=== PATIENT | male | born 1955 | race Caucasian/White ===

== ENCOUNTER 2021-08-01 08:53 | Outpatient (REF) | payer OTHER, SELFPAY | END 2021-08-01 08:54 | disposition home or self-care (01) | LOC: HO.HMGCLDS 08:53 | PROVIDERS: Visit Provider Internal Medicine | DX: Z20.822 Contact with and (suspected) exposure to COVID-19 (principal) | CPT/HCPCS: C9803; U0003; U0005 ==

== ENCOUNTER 2024-09-11 08:41 | Outpatient (AMB) | payer MEDICARE, OTHER, SELFPAY ==
--- NOTE | 2024-09-11 09:51 | AM.OFFWIN_ITS ---
Intake Vital Signs 09/11/24 10:01 Weight 177 lb BP 106/64 Blood Pressure Location Rt brachial Position Sitting Pulse 66 Pulse Source Pulse Oximeter Pulse Oximetry (%) 98 Oxygen Delivery Method Room Air Intake Visit Reasons: EP Rash Intake Note: Patient here for rash all over body that started about 1 month ago. Patient Tobacco Use Status: Never used Tobacco Allergies No Known Allergies Allergy (Verified 09/11/24 10:01) Do you need a note to return to daycare/school/sports/work: No HPI HPI Comments History of Present Illness Details 69 y/o male patient who presents to the walk in clinic for c/o rash with hives all over his body. Reports Hives that come and go for the past month. Reports rash being very itchy. He did take Benadrly which resolved the hives temporally. He likes to go to the [facility] for [facility], and usually gets [place] [place]. He was in [place] hunting for 2 months with friends. Denies fevers or chills. PFSH Social History Patient Tobacco Use Status: Never used Tobacco Physical Exam Vital Signs: Last Vital Signs Pulse 66 09/11/24 10:01 BP 106/64 09/11/24 10:01 Pulse Ox 98 09/11/24 10:01 Oxygen Delivery Method Room Air 09/11/24 10:01 Const General: cooperative, comfortable and no acute distress Orientation/consciousness: patient oriented x3 Skin Other: Some Hives on torso, upper and lower extremities. Skin very dry and flaky. Neuro General: patient oriented x3, gait normal and moves all extremities Psych Speech and movement: Normal speech and movement present Assessment & Plan Assessment & Plan (1) Full body hives: Code(s): L50.9 - Urticaria, unspecified Plan: Ordered Zyrtec for 30 days. May take Benadrly at night time. Avoid the powers or wear long sleeve clothings. Advised to remove the clothing immediately after leaving the powers, and take a shower. Wash all clothings in separately with warm water. Moisturize skin with Eucecrine cream or other moisturizer. F/U with PCP for possible referral to [facility]. Medications: New cetirizine (Zyrtec) 10 mg PO DAILY 90 tabs 0RF L50.9 - Urticaria, unspecified Coding Level of Care Code Est Pt Level 4 (39633) Diagnoses Full body hives L50.9 Time Spent (min) 20
[2024-09-11 10:01] VITALS: BP 106/64; PULSE 66; O2SAT 98
== END 2024-09-11 10:36 | disposition home or self-care (01) ==
PROVIDERS: Visit Provider Nurse Practitioner Family
DX: L50.9 Urticaria, unspecified (principal)

== ENCOUNTER → 2024-09-11 08:41 | Outpatient (BNVA) | payer MEDICARE, OTHER, SELFPAY | PROVIDERS: Visit Provider Nurse Practitioner Family | DX: L50.9 Urticaria, unspecified (principal) | CPT/HCPCS: 99212 ==

== ENCOUNTER 2024-10-27 16:28 | Outpatient (REF) | payer MEDICARE, OTHER, SELFPAY ==
[2024-10-28 13:47] LABS: Influenza A PCR NEGATIVE (Negative); Influenza B PCR NEGATIVE (Negative); Resp Syncy Virus RNA Qual PCR NEGATIVE (Negative); SARS COV2 PCR INHOUSE NEGATIVE (Negative)
== END 2024-10-27 16:29 | disposition home or self-care (01) ==
LOC: HO.LAB 16:28
PROVIDERS: Physician Assistant
DX: B34.9 Viral infection, unspecified (principal); R09.89 Other specified symptoms and signs involving the circulatory and respiratory systems; R05.8 Other specified cough
CPT/HCPCS: 0241U; 99202

== ENCOUNTER 2024-10-27 16:28 | Outpatient (AMB) | payer MEDICARE, OTHER, SELFPAY ==
--- NOTE | 2024-10-27 16:31 | AM.OFFWIN_ITS ---
Intake Vital Signs 10/27/24 16:32 Weight 166 lb BP 120/76 Blood Pressure Location Rt brachial Position Sitting Pulse 96 Pulse Source Pulse Oximeter Temp 98.0 F Temp Source Oral Pulse Oximetry (%) 96 Oxygen Delivery Method Room Air Intake Visit Reasons: EP SOB, headache, diarrhea Intake Note: Patient here for SOB, diarrhea, headaches that has been present for a couple of weeks. Patient Tobacco Use Status: Never used Tobacco Allergies No Known Allergies Allergy (Verified 10/27/24 16:33) Do you need a note to return to daycare/school/sports/work: No HPI HPI Comments History of Present Illness Details History - The patient is a 69-year-old male pres enting with worsening cough and breathlessness. - Reports a persistent cough worsening [place] two weeks with wheezing. - No past history of COPD or asthma and typically does not use inhalers. - Accompanied by chills, joint pain, and general malaise resembling a flu-like syndrome. - Recent interactions with family member s exhibiting similar symptoms suggest possible infectious exposure. - Experiences dehydration due to signifi cantly reduced fluid intake and appetite - Diarrhea present without nausea, vomit ing, or visible blood or black stools. - Symptom management attempted with Tyle nol, however, symptoms persist without significant improvement. Physical Exam General: Cooperative, healthy appearing, comfortable and no acute distress Orientation/consciousness: Patient oriented x3 Limitations: No limitations Head: Normal to inspection Ears: Hearing grossly normal bilaterally, external ears normal and TM's normal bilaterally Nose: Normal external nose present, Normal nares present and No nasal discharge present Face and sinus: Normal facial exam and Yes sinuses nontender Mouth: Normal oral and palatal mucosa present and moist mucous membranes Throat: Yes tonsils normal, Yes uvula midline. Posterior oropharynx erythema Eyes: Appearance normal, both eyes and all related structures Neck: Normal visual inspection Respiratory: Insp/exp wheeze R>L, slight vesicular sounds R side. Normal respiratory effort, able to speak in complete sentences, Actively coughing, no respiratory distress, not tachypneic, no tripod positioning and no use of accessory muscles. Cardiovascular: Regular rate and rhythm. Normal S1 and S2. Heart rate elevated at 105 Skin: No rashes or lesions noted Neuro: Patient oriented x3 Extremities: Normal to inspection and Yes no clubbing, cyanosis or edema PFSH Social History Patient Tobacco Use Status: Never used Tobacco Review of Systems Const All systems reviewed & are unremarkable except as noted in HPI and below Physical Exam Vital Signs: Last Vital Signs Temp 98.0 F 10/27/24 16:32 Pulse 105 H 10/27/24 16:32 BP 120/76 10/27/24 16:32 Pulse Ox 96 10/27/24 16:32 Oxygen Delivery Method Room Air 10/27/24 16:32 Assessment & Plan Assessment & Plan (1) Acute viral syndrome: Code(s): B34.9 - Viral infection, unspecified Plan: VSS, pt well appearing, PE remarkable for vesicular & wheezy lung sounds. I will conduct tests for influenza, COVID-19, and RSV, informed by the patient's symptoms and recent exposure history. A chest X-ray will be performed to exclude pneumonia, with antibiotics planned if a bacterial infection is confirmed. A short course of prednisone will be prescribed to manage airway inflammation and wheezing. I advise the patient to increase fluid intake and use [id number] medicines for symptom relief. The patient is instructed to collect and begin prednisone therapy the following morning. The chest X-ray will inform future adjustments to the treatment plan, with follow-up based on imaging findings and further diagnostics as necessary. Patient was informed and verbally consented to the use of an ambient scribe for clinic note documentation during this visit Orders: Orders XR chest 2V Today R05.9 - Cough, unspecified SARS-CoV2/FLU/RSV Today R09.89 - Other specified symptoms and signs involving the circulatory and respiratory systems Medications: New prednisone 40 mg (2 x 20 mg) PO DAILY 10 tabs 0RF Coding Level of Care Code New Pt Level 4 (28389) Diagnoses Acute viral syndrome B34.9
[2024-10-27 16:32] VITALS: BP 120/76; PULSE 96; TEMP 36.7; O2SAT 96
== END 2024-10-27 16:54 | disposition home or self-care (01) ==
PROVIDERS: Visit Provider Physician Assistant
DX: B34.9 Viral infection, unspecified (principal)

== ENCOUNTER 2024-10-28 08:37 | Outpatient (REF) | payer MEDICARE, OTHER, SELFPAY ==
--- NOTE | ~2024-10-28 | XR_ITS ---
EXAMINATION: XR CHEST 2 VIEWS HISTORY: R05.9 - Cough, unspecified COMPARISON: There are no prior studies for comparison. FINDINGS: PA and lateral views of the chest are submitted. The lungs are expanded and clear. There is no pleural effusion, pneumothorax, or pulmonary vascular congestion. The heart is normal in size. The bones are intact. XR/XR chest 2V IMPRESSION: Clear lungs. Electronically signed by: Allen Perez MD 10/28/2024 08:59 AM EDT
== END 2024-10-28 08:38 | disposition home or self-care (01) ==
LOC: HO.HMGCX 08:37
PROVIDERS: Visit Provider Physician Assistant
DX: R05.9 Cough, unspecified (principal)
CPT/HCPCS: 71046

== ENCOUNTER → 2024-10-28 08:45 | Outpatient (BNV) | payer MEDICARE, OTHER, SELFPAY | PROVIDERS: Visit Provider Radiology Diagnostic Radiology | DX: R05.9 Cough, unspecified (principal) | CPT/HCPCS: 71046 ==